=== PATIENT | female | born 1940 | race Hispanic/Latino ===

== ENCOUNTER → 2018-04-15 | Outpatient (CLI) | payer OTHER | END | disposition home or self-care (01) | LOC: OIH 11:03 | PROVIDERS: ATTEND Family Medicine | DX: G31.9 Degenerative disease of nervous system, unspecified (principal); S09.90XA Unspecified injury of head, initial encounter; X58.XXXA Exposure to other specified factors, initial encounter; Y93.89 Activity, other specified; Y92.89 Other specified places as the place of occurrence of the external cause; Y99.8 Other external cause status | CPT/HCPCS: 70450 ==

== ENCOUNTER → 2019-01-18 | Outpatient (CLI) | payer OTHER | END | disposition home or self-care (01) | LOC: RAH 10:37 | PROVIDERS: ATTEND Family Medicine | DX: Z12.31 Encounter for screening mammogram for malignant neoplasm of breast (principal) | CPT/HCPCS: 77067 ==

== ENCOUNTER 2020-01-23 11:20 | Observation (INO) | payer OTHER ==
[~2020-01-23] VITALS: Ht 160 cm; Wt 36.7 kg
[2020-01-23 12:19] LABS: BASOPHILS % (AUTO) 0.3 % (0.0-5.0); EOSINOPHILS % (AUTO) 0.9 % (0.0-8.0); HEMATOCRIT 35.2 % (36-48); MEAN CORPUSCULAR HEMOGLOBIN 27.3 pg (27.0-33.0); MEAN CORPUSCULAR HGB CONC 31.8 g/dL (32.0-36.0); MEAN CORPUSCULAR VOLUME 85.9 fL (79-99); MONOCYTES % (AUTO) 5.9 % (3.0-13.0); NEUTROPHILS % (AUTO) 83.6 % (40.0-77.0); PLATELET COUNT (AUTO) 338 K/uL (130-400); RED CELL DISTRIBUTION WIDTH 13.6 % (11.0-15.5); WHITE BLOOD COUNT (AUTO) 16.4 K/uL (4.8-10.8)
[2020-01-23 12:37] LABS: ALBUMIN 2.9 g/dL (3.5-5.0); BILIRUBIN,TOTAL 0.4 mg/dL (0.2-1.0); CREATININE 0.7 mg/dL (0.5-1.5); POTASSIUM 3.4 mmol/L (3.5-5.1); TOTAL PROTEIN, SERUM 6.7 g/dL (6.0-8.3)
[2020-01-23] MEDS ORDERED: POTASSIUM BICARB/CIT AC 25 MEQ TABLET.EFF ONE (12:51)
[2020-01-23] MEDS ORDERED: ONDANSETRON ODT 4 MG TAB ONE (13:36)
[2020-01-23] MEDS ORDERED: HYDROCODONE/ACETAMINOPHEN 5/325 MG TAB ONE (13:37)
[2020-01-23] MEDS ORDERED: HYDRALAZINE HCL 20 MG/ML VIAL IV PRN (15:45)
[2020-01-23] MEDS ORDERED: LACTULOSE 20 GM/30 ML UDCUP PO PRN (15:45)
[2020-01-23] MEDS ORDERED: KETOROLAC TROMETHAMINE 15MG/ML IV PRN (15:45)
[2020-01-23] MEDS ORDERED: HYDROCODONE/ACETAMINOPHEN 5/325 MG TAB PO PRN (15:45)
[2020-01-23] MEDS ORDERED: POTASSIUM CHLORIDE 10% ELIXIR 20 MEQ/15 ML UDCUP PO PRN (16:00)
[2020-01-23] MEDS ORDERED: POTASSIUM CHLORIDE 20MEQ/100ML 100 ML IV PRN (16:00)
[2020-01-23] MEDS ORDERED: POTASSIUM CHLORIDE 20 MEQ ERTAB PO PRN (16:00)
[2020-01-23] MEDS ORDERED: LIDOCAINE HCL-MPF 1% 2ML VIAL IV PRN (16:00)
[2020-01-23 17:00] VITALS: BP 161/72
--- NOTE | 2020-01-23 17:37 | NUR ---
DR. HERNANDEZ NOTIFIED OF THE CONSULT. NO ORDERS WAS GIVEN.
[2020-01-23 20:00] VITALS: BP 148/71
[2020-01-23] MEDS: HEPARIN SODIUM 5000UNIT/ML 1ML VIAL SQ SCH (20:15)
[2020-01-24] VITALS: BP 150/72
[2020-01-24 03:54] VITALS: BP 153/82
[2020-01-24 05:07] LABS: BASOPHILS % (AUTO) 0.5 % (0.0-5.0); EOSINOPHILS % (AUTO) 2.4 % (0.0-8.0); HEMATOCRIT 34.6 % (36-48); LYMPHOCYTES % (AUTO) 9.4 % (21.0-51.0); MEAN CORPUSCULAR HGB CONC 31.5 g/dL (32.0-36.0); MEAN CORPUSCULAR VOLUME 85.9 fL (79-99); MONOCYTES % (AUTO) 6.2 % (3.0-13.0); NEUTROPHILS % (AUTO) 80.3 % (40.0-77.0); PLATELET COUNT (AUTO) 324 K/uL (130-400); RED BLOOD CELL COUNT(AUTO) 4.03 MIL/uL (4.00-5.50); RED CELL DISTRIBUTION WIDTH 13.4 % (11.0-15.5); WHITE BLOOD COUNT (AUTO) 9.7 K/uL (4.8-10.8)
[2020-01-24 05:23] LABS: CREATININE 0.6 mg/dL (0.5-1.5); POTASSIUM 3.8 mmol/L (3.5-5.1)
[2020-01-24 08:00] VITALS: BP 151/78
[2020-01-24] MEDS: HEPARIN SODIUM 5000UNIT/ML 1ML VIAL SQ SCH (10:04)
[2020-01-24 11:00] VITALS: BP 112/58
--- NOTE | 2020-01-24 12:38 | NUR ---
DCP CM met with pt discussed dc plans. Pt is semi-independent prior to admission, was living at home alone until recently been living w/daughter Ivette and [place]ira. Pt has a cane, shower chair, handicapped built restroom w/raised toilet and hand bars. Feels safe to go back home, declined placement, prefer to go home. With pt's permission in room called daughter on facesheet. Spoke to Ivette . All info above verified w/daughter and is correct. 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 Aware pt declined placement, daughter agreeable w/pt's decision. Daughter verbalized sister and herself are proactive w/pt's care and will be available after work hours, in the mean time provider stays w/pt at all time once pt dc. DC plan to home once stable. CM to cont to follow up. Addendum: 01/24/20 at 1242 by KAVIN QUIROGA LVN CM Amended: Links added.
--- NOTE | 2020-01-24 14:52 | NUR ---
[id number] patient signed DAVILA Letter, I faxed DAVILA Letter to [id number] and placed in chart under consent tab.
[2020-01-24 16:00] VITALS: BP 136/64
== END 2020-01-24 18:00 | disposition home or self-care (01) ==
LOC: EDH 11:20 → INTOOBSV 15:44 → EDHIP 15:44 → 3CH 16:44
PROVIDERS: ADMIT Hospitalist; ATTEND Hospitalist
DX: S32.591A Other specified fracture of right pubis, initial encounter for closed fracture (principal); E87.6 Hypokalemia; D72.829 Elevated white blood cell count, unspecified; W01.0XXA Fall on same level from slipping, tripping and stumbling without subsequent striking against object, initial encounter; Y92.89 Other specified places as the place of occurrence of the external cause; Y93.89 Activity, other specified; Y99.8 Other external cause status
CPT/HCPCS: 36415 ×2; 70450; 71045; 72125; 72128; 72131; 72170; 72192; 80048; 80053; 82550; 84484; 85025 ×2; 93005; 96372 ×2; 99291; G0378 ×10; J1644 ×2